=== PATIENT | female | born 1950 | race Caucasian/White ===

== ENCOUNTER 2023-07-30 04:57 | Inpatient (IN) | payer MEDICARE ==
[2023-07-30] MEDS ORDERED: Ondansetron PF 4 MG/2 ML Vial IVP PRN ×2 (05:45→05:50)
[2023-07-30] MEDS ORDERED: Ondansetron ODT 4 MG TAB SL PRN (05:45)
[2023-07-30] MEDS ORDERED: Electrolyte Replacement Protocol 1 EACH IVPB ONE (05:50)
[2023-07-30 06:14] VITALS: BMI 35.0
[2023-07-30] MEDS: Albumin 25% 25 GM (100 mL) BOT IVPB SCH ×2 (06:40→17:17)
[2023-07-30] MEDS: Sodium Bicarbonate 150 MEQ in Dextrose 5% in Water 1,000 ML FS SCH ×2 (07:04→07:50)
[2023-07-30] MEDS: Pantoprazole 80 MG, Admixture Fee 1 EACH in Sodium Chloride 0.9% 100 ML IVPB SCH (07:51)
[2023-07-30 07:58] LABS: ALT (SGPT) 18 U/L (8-55); AST (SGOT) 20 U/L (5-34); Albumin 2.3 g/dL (3.4-4.8); Alkaline Phosphatase 116 U/L (40-110); Anion Gap 22 mmol/L (10-20); BUN (Urea Nitrogen) 83 mg/dL (9.8-20.1); Bilirubin, Total 0.5 mg/dL (0.2-1.2); Calc. Creatinine Clearance 16 mL/min (70-130); Calcium 7.8 mg/dL (7.8-10.44); Carbon Dioxide 11 mmol/L (23-31); Chloride 112 mmol/L (98-107); Estimated GFR 8; Globulin 3.6 g/dL (2.4-3.5); Glucose 97 mg/dL (83-110); Potassium 3.5 mmol/L (3.5-5.1); Protein, Total 5.9 g/dL (5.8-8.1); Sodium 141 mmol/L (136-145)
[2023-07-30 07:59] LABS: Hematocrit 26.9 % (36.0-47.0); Hemoglobin 8.6 g/dL (12.0-16.0); Mean Corpuscular Hemoglobin 27.8 pg (27.0-31.0); Mean Corpuscular Volume 87.1 fL (78.0-98.0); Mean Platelet Volume 11.7 fL (7.4-10.4); Platelet Count 246 10x3/uL (130-400); RBC Distribution Width 16.1 % (11.5-14.5); Red Blood Cell (RBC) Count 3.09 mill/uL (4.20-5.40)
[2023-07-30] MEDS: Cefepime 2 GM in Sodium Chloride 0.9% 100 ML IVPB SCH (08:22)
[2023-07-30] MEDS: LevoFLOXacin 750 mg/D5W 750 MG in Premix 1 BAG IVPB SCH (08:23)
[2023-07-30 08:42] LABS: Band 22 % (5-11); Lymphocytes 5 % (21-51); Monocytes 2 % (0-10); Neutrophil 71 % (42-75)
[2023-07-30 08:46] LABS: Burr Cells SLIGHT = 2-5 cells (100X) (0-1/hpf); Platelet Adequacy Comment Platelets Normal; Polychromasia SLIGHT = 2-3 cells (100X) (0-2/hpf); Vacuoles SLIGHT
[2023-07-30 09:29] LABS: Toxic Granulation SLIGHT
[2023-07-30 09:36] LABS: Large Platelets 3.9 % (0-5); Metamyelocyte 2 % (0-0)
[2023-07-30] MEDS: Pantoprazole 40 MG VIAL IVP SCH ×2 (11:20→20:39)
[2023-07-30] MEDS: Meropenem 1 GM in Sodium Chloride 0.9% 100 ML IVPB SCH (11:20)
[2023-07-30] MEDS: NOREPINEPHRINE 8 MG/250 ML-D5W 250 ML IVPB PRN (14:48)
[2023-07-30] MEDS: Meropenem 500 MG in Sodium Chloride 0.9% 100 ML IVPB SCH (17:16)
[2023-07-30 19:12] LABS: Hematocrit 25.2 % (36.0-47.0); Hemoglobin 8.1 g/dL (12.0-16.0); Mean Corpuscular HGB CONC 32.1 g/dL (32.0-36.0); Mean Corpuscular Hemoglobin 27.7 pg (27.0-31.0); Mean Corpuscular Volume 86.3 fL (78.0-98.0); Mean Platelet Volume 11.3 fL (7.4-10.4); Platelet Count 221 10x3/uL (130-400); RBC Distribution Width 15.9 % (11.5-14.5); Red Blood Cell (RBC) Count 2.92 mill/uL (4.20-5.40)
[2023-07-30 20:05] LABS: Iron 9 ug/dL (50-170); Iron Binding Capacity, Total 139 mcg/dL (265-497)
[2023-07-30 20:52] LABS: Band 10 % (5-11); Eosinophils 1 % (0-10); Lymphocytes 3 % (21-51); Monocytes 5 % (0-10); Neutrophil 81 % (42-75); Plasma Cells 0 % (0-0); Total Cell Count 100
[2023-07-30] MEDS: Midodrine HCl 5 MG TAB PO SCH (21:21)
[2023-07-31] MEDS: Guaifenesin DM 100-10/5 ML UDCUP PO PRN (00:09)
[2023-07-31 02:33] LABS: Bilirubin Negative (Negative); Blood, Urine 3+ (Negative); Clarity Turbid (Clear); Glucose, Urine (Dipstick) Normal (Negative); Ketone, Urine Negative (Negative); Leukocyte 500 Leu/uL (Negative); Nitrite Negative (Negative); Protein, Urine (Dipstick) 100 mg/dL (Neg-Trace); RBC/HPF Greater than 50 HPF (0-3); Specific Gravity, Urine 1.015 (1.002-1.036); Squamous Epithelial 0-3 HPF (0-3); Transitional Epithelial 0-3 HPF (None Seen); Urobilinogen Normal mg/dL (Less than 2); WBC/HPF Greater than 50 HPF (0-3)
[2023-07-31 02:34] LABS: Bacteria/HPF Rare-Few HPF (None Seen)
[2023-07-31 04:39] LABS: Hematocrit 23.8 % (36.0-47.0); Hemoglobin 7.8 g/dL (12.0-16.0); Mean Corpuscular HGB CONC 32.8 g/dL (32.0-36.0); Mean Corpuscular Hemoglobin 27.7 pg (27.0-31.0); Mean Corpuscular Volume 84.4 fL (78.0-98.0); Platelet Count 227 10x3/uL (130-400); RBC Distribution Width 15.9 % (11.5-14.5); Red Blood Cell (RBC) Count 2.82 mill/uL (4.20-5.40)
[2023-07-31 05:00] LABS: ALT (SGPT) 20 U/L (8-55); AST (SGOT) 25 U/L (5-34); Albumin 2.4 g/dL (3.4-4.8); Alkaline Phosphatase 112 U/L (40-110); Anion Gap 20 mmol/L (10-20); BUN (Urea Nitrogen) 93 mg/dL (9.8-20.1); Bilirubin, Total 0.8 mg/dL (0.2-1.2); Calc. Creatinine Clearance 18 mL/min (70-130); Calcium 7.3 mg/dL (7.8-10.44); Carbon Dioxide 17 mmol/L (23-31); Chloride 108 mmol/L (98-107); Estimated GFR 9; Globulin 3.1 g/dL (2.4-3.5); Glucose 104 mg/dL (83-110); Magnesium 1.9 mg/dL (1.6-2.6); Protein, Total 5.5 g/dL (5.8-8.1); Sodium 142 mmol/L (136-145)
[2023-07-31 05:14] LABS: Anisocytosis SLIGHT = 6-15 cells HPF (0-5); Band 12 % (5-11); Burr Cells SLIGHT = 2-5 cells HPF (0-1); Lymphocytes 1 % (21-51); Monocytes 2 % (0-10); Neutrophil 85 % (42-75); Platelet Adequacy Comment Platelets Normal; Poikilocytosis SLIGHT = 6-15 cells HPF (0-5); Polychromasia SLIGHT = 2-3 cells HPF (0-2); Toxic Granulation SLIGHT
[2023-07-31] MEDS: Potassium Chloride 20 MEQ in Premix 1 BAG IVPB SCH (05:48)
[2023-07-31] MEDS: Potassium Chloride 20 MEQ TAB PO SCH (05:52)
[2023-07-31] MEDS ORDERED: Cefepime 1 GM in Sodium Chloride 0.9% 100 ML IVPB SCH ×2 (09:00→10:00)
[2023-07-31] MEDS: Sodium Bicarbonate 150 MEQ in Dextrose 5% in Water 1,000 ML IV SCH (09:13)
[2023-07-31] MEDS: Albumin 25% 25 GM (100 mL) BOT IVPB SCH (11:20)
[2023-07-31] MEDS: Ferrous Sulfate 325 MG TAB PO SCH (17:14)
[2023-07-31 18:05] LABS: ALT (SGPT) 21 U/L (8-55); AST (SGOT) 26 U/L (5-34); Albumin 2.8 g/dL (3.4-4.8); Alkaline Phosphatase 108 U/L (40-110); Anion Gap 20 mmol/L (10-20); BUN (Urea Nitrogen) 92 mg/dL (9.8-20.1); Bilirubin, Total 0.8 mg/dL (0.2-1.2); Calc. Creatinine Clearance 19 mL/min (70-130); Carbon Dioxide 20 mmol/L (23-31); Chloride 107 mmol/L (98-107); Estimated GFR 9; Globulin 2.8 g/dL (2.4-3.5); Glucose 98 mg/dL (83-110); Phosphorus 4.1 mg/dL (2.3-4.7); Potassium 3.4 mmol/L (3.5-5.1); Protein, Total 5.6 g/dL (5.8-8.1); Sodium 144 mmol/L (136-145)
[2023-07-31 18:48] LABS: Burr Cells SLIGHT = 2-5 cells HPF (0-1); Hypochromia SLIGHT = 6-15 cells HPF (0-5); Lymphocytes 6 % (21-51); Microcytosis SLIGHT = 6-15 cells HPF (0-5); Monocytes 3 % (0-10); Neutrophil 91 % (42-75); Ovalocytes MODERATE= 6-15 cells HPF (0-1); Platelet Adequacy Comment Platelets Normal; Polychromasia SLIGHT = 2-3 cells HPF (0-2); Target Cells SLIGHT = 2-5 cells HPF (0-1); Toxic Granulation MODERATE
[2023-07-31 18:50] LABS: Hematocrit 22.7 % (36.0-47.0); Hemoglobin 7.4 g/dL (12.0-16.0); Mean Corpuscular HGB CONC 32.6 g/dL (32.0-36.0); Mean Corpuscular Hemoglobin 27.4 pg (27.0-31.0); Mean Corpuscular Volume 84.1 fL (78.0-98.0); Mean Platelet Volume 11.3 fL (7.4-10.4); Platelet Count 207 10x3/uL (130-400); RBC Distribution Width 15.9 % (11.5-14.5)
[2023-07-31] MEDS: Acetaminophen 325 MG TAB PO PRN (20:07)
[2023-08-01] MEDS: Melatonin 3 MG TAB PO SCH (00:48)
[2023-08-01 05:30] LABS: Hemoglobin 7.3 g/dL (12.0-16.0); Mean Corpuscular HGB CONC 33.2 g/dL (32.0-36.0); Mean Corpuscular Volume 84.3 fL (78.0-98.0); Mean Platelet Volume 11.2 fL (7.4-10.4); Platelet Count 196 10x3/uL (130-400); Red Blood Cell (RBC) Count 2.61 mill/uL (4.20-5.40)
[2023-08-01 06:14] LABS: ALT (SGPT) 19 U/L (8-55); AST (SGOT) 28 U/L (5-34); Alkaline Phosphatase 97 U/L (40-110); Anion Gap 17 mmol/L (10-20); BUN (Urea Nitrogen) 97 mg/dL (9.8-20.1); Calc. Creatinine Clearance 21 mL/min (70-130); Calcium 7.2 mg/dL (7.8-10.44); Carbon Dioxide 24 mmol/L (23-31); Chloride 105 mmol/L (98-107); Estimated GFR 10; Globulin 2.5 g/dL (2.4-3.5); Glucose 113 mg/dL (83-110); Potassium 2.9 mmol/L (3.5-5.1); Protein, Total 5.5 g/dL (5.8-8.1); Sodium 143 mmol/L (136-145)
[2023-08-01 06:53] LABS: Band 1 % (5-11); Burr Cells SLIGHT = 2-5 cells HPF (0-1); Lymphocytes 2 % (21-51); Monocytes 3 % (0-10); Myelocyte 1 % (0-0); Neutrophil 93 % (42-75); Platelet Adequacy Comment Platelets Normal; Smudge Cells 9.9 %
[2023-08-01] MEDS: Potassium Chloride 20 MEQ in Premix 1 BAG IVPB SCH (06:58)
[2023-08-01] MEDS: Ferrous Sulfate 325 MG TAB PO SCH (09:26)
[2023-08-01] MEDS: Sodium Chloride 0.9% 1,000 ML IV SCH (10:00)
[2023-08-01] MEDS ORDERED: LevoFLOXacin 500 mg/D5W 500 MG in Premix 1 BAG IVPB SCH (10:00)
[2023-08-01] MEDS: Potassium Bicarbonate/Cit Ac 20 MEQ TAB PO SCH (10:53)
[2023-08-01 15:16] LABS: Potassium 3.7 mmol/L (3.5-5.1)
[2023-08-01] MEDS: Dronedarone HCl 400 MG TAB PO SCH (17:53)
[2023-08-01] MEDS: dilTIAZem CD 180 MG CAP PO SCH (17:53)
[2023-08-01] MEDS: Ipratropium/Albuterol 3 ML NEB NEB PRN (18:10)
[2023-08-01] MEDS: Morphine 2 MG/ML VIAL SLOW IVP PRN (18:29)
[2023-08-01 22:23] LABS: Hematocrit 23.8 % (36.0-47.0); Hemoglobin 7.9 g/dL (12.0-16.0)
[2023-08-01 22:37] LABS: Anion Gap 16 mmol/L (10-20); BUN (Urea Nitrogen) 87 mg/dL (9.8-20.1); Calc. Creatinine Clearance 26 mL/min (70-130); Calcium 7.2 mg/dL (7.8-10.44); Carbon Dioxide 24 mmol/L (23-31); Chloride 109 mmol/L (98-107); Estimated GFR 13; Glucose 113 mg/dL (83-110); Potassium 3.1 mmol/L (3.5-5.1); Sodium 146 mmol/L (136-145)
[2023-08-01] MEDS: Furosemide 40 MG (4 mL) VIAL SLOW IVP SCH (22:51)
[2023-08-02] MEDS: Potassium Chloride 20 MEQ TAB PO SCH ×2 (00:12→09:49)
[2023-08-02 06:49] LABS: #Basophils Less than 0.03 10x3/uL (0.0-0.2); %Basophils 0.2 % (0.0-1.0); %Eosinophils 0.6 % (0.0-10.0); %Lymphocytes 7.6 % (21.0-51.0); %Monocytes 8.4 % (0.0-10.0); Hematocrit 26.3 % (36.0-47.0); Hemoglobin 8.4 g/dL (12.0-16.0); Mean Corpuscular HGB CONC 31.9 g/dL (32.0-36.0); Mean Corpuscular Hemoglobin 27.3 pg (27.0-31.0); Mean Corpuscular Volume 85.4 fL (78.0-98.0); Mean Platelet Volume 10.8 fL (7.4-10.4); Platelet Count 205 10x3/uL (130-400); RBC Distribution Width 16.2 % (11.5-14.5); Red Blood Cell (RBC) Count 3.08 mill/uL (4.20-5.40)
[2023-08-02 07:59] LABS: ALT (SGPT) 23 U/L (8-55); AST (SGOT) 28 U/L (5-34); Albumin 3.1 g/dL (3.4-4.8); Alkaline Phosphatase 110 U/L (40-110); Anion Gap 19 mmol/L (10-20); BUN (Urea Nitrogen) 89 mg/dL (9.8-20.1); Calc. Creatinine Clearance 30 mL/min (70-130); Calcium 7.5 mg/dL (7.8-10.44); Carbon Dioxide 21 mmol/L (23-31); Chloride 111 mmol/L (98-107); Estimated GFR 15; Globulin 2.3 g/dL (2.4-3.5); Glucose 108 mg/dL (83-110); Magnesium 2.1 mg/dL (1.6-2.6); Potassium 3.3 mmol/L (3.5-5.1); Protein, Total 5.4 g/dL (5.8-8.1); Sodium 148 mmol/L (136-145)
[2023-08-02] MEDS: dilTIAZem CD 180 MG CAP PO SCH (09:50)
[2023-08-02] MEDS: Pantoprazole DR 40 MG TAB PO SCH (09:50)
[2023-08-02] MEDS: Lactated Ringer's 1,000 ML IV SCH ×2 (14:58→22:56)
[2023-08-03 04:37] LABS: #Basophils Less than 0.03 10x3/uL (0.0-0.2); %Basophils 0.2 % (0.0-1.0); %Eosinophils 0.6 % (0.0-10.0); %Lymphocytes 8.5 % (21.0-51.0); %Monocytes 9.4 % (0.0-10.0); Hemoglobin 8.1 g/dL (12.0-16.0); Mean Corpuscular HGB CONC 32.4 g/dL (32.0-36.0); Mean Corpuscular Hemoglobin 26.6 pg (27.0-31.0); Mean Corpuscular Volume 82.2 fL (78.0-98.0); Mean Platelet Volume 10.8 fL (7.4-10.4); Platelet Count 204 10x3/uL (130-400); RBC Distribution Width 15.9 % (11.5-14.5); Red Blood Cell (RBC) Count 3.04 mill/uL (4.20-5.40)
[2023-08-03 04:57] LABS: ALT (SGPT) 22 U/L (8-55); AST (SGOT) 25 U/L (5-34); Albumin 2.8 g/dL (3.4-4.8); Alkaline Phosphatase 114 U/L (40-110); Anion Gap 14 mmol/L (10-20); BUN (Urea Nitrogen) 70 mg/dL (9.8-20.1); Bilirubin, Total 0.8 mg/dL (0.2-1.2); Calc. Creatinine Clearance 50 mL/min (70-130); Calcium 8.5 mg/dL (7.8-10.44); Carbon Dioxide 27 mmol/L (23-31); Chloride 110 mmol/L (98-107); Estimated GFR 28; Glucose 108 mg/dL (83-110); Iron 20 ug/dL (50-170); Iron Binding Capacity, Total 131 mcg/dL (265-497); Potassium 3.3 mmol/L (3.5-5.1); Protein, Total 5.8 g/dL (5.8-8.1); Sodium 148 mmol/L (136-145)
[2023-08-03] MEDS: Dextrose 5 %-0.45 % NaCl 1,000 ML IV SCH (12:15)
[2023-08-03] MEDS: Potassium Chloride 20 MEQ TAB PO SCH (12:15)
[2023-08-04 04:57] LABS: #Basophils Less than 0.03 10x3/uL (0.0-0.2); %Basophils 0.3 % (0.0-1.0); %Eosinophils 0.9 % (0.0-10.0); %Lymphocytes 10.1 % (21.0-51.0); %Monocytes 9.6 % (0.0-10.0); Hematocrit 25.4 % (36.0-47.0); Hemoglobin 8.2 g/dL (12.0-16.0); Mean Corpuscular HGB CONC 32.3 g/dL (32.0-36.0); Mean Corpuscular Volume 83.6 fL (78.0-98.0); Mean Platelet Volume 11.3 fL (7.4-10.4); Platelet Count 191 10x3/uL (130-400); RBC Distribution Width 15.7 % (11.5-14.5); Red Blood Cell (RBC) Count 3.04 mill/uL (4.20-5.40)
[2023-08-04 05:15] LABS: ALT (SGPT) 22 U/L (8-55); AST (SGOT) 24 U/L (5-34); Albumin 2.7 g/dL (3.4-4.8); Alkaline Phosphatase 112 U/L (40-110); Anion Gap 13 mmol/L (10-20); BUN (Urea Nitrogen) 45 mg/dL (9.8-20.1); Bilirubin, Total 0.7 mg/dL (0.2-1.2); Calc. Creatinine Clearance 83 mL/min (70-130); Calcium 8.8 mg/dL (7.8-10.44); Carbon Dioxide 26 mmol/L (23-31); Chloride 112 mmol/L (98-107); Estimated GFR 54; Glucose 123 mg/dL (83-110); Potassium 3.5 mmol/L (3.5-5.1); Protein, Total 5.7 g/dL (5.8-8.1); Sodium 147 mmol/L (136-145)
[2023-08-04 07:13] LABS: Magnesium 1.8 mg/dL (1.6-2.6)
[2023-08-04] MEDS: Meropenem 1 GM in Sodium Chloride 0.9% 100 ML IVPB SCH (16:48)
[2023-08-05 04:57] LABS: #Basophils Less than 0.03 10x3/uL (0.0-0.2); %Basophils 0.2 % (0.0-1.0); %Eosinophils 1.9 % (0.0-10.0); %Lymphocytes 10.5 % (21.0-51.0); %Monocytes 8.3 % (0.0-10.0); Hematocrit 26.3 % (36.0-47.0); Hemoglobin 8.4 g/dL (12.0-16.0); Mean Corpuscular HGB CONC 31.9 g/dL (32.0-36.0); Mean Corpuscular Hemoglobin 27.8 pg (27.0-31.0); Mean Corpuscular Volume 87.1 fL (78.0-98.0); Mean Platelet Volume 11.3 fL (7.4-10.4); Platelet Count 188 10x3/uL (130-400); RBC Distribution Width 15.5 % (11.5-14.5); Red Blood Cell (RBC) Count 3.02 mill/uL (4.20-5.40)
[2023-08-05 05:23] LABS: ALT (SGPT) 23 U/L (8-55); AST (SGOT) 25 U/L (5-34); Albumin 2.8 g/dL (3.4-4.8); Alkaline Phosphatase 108 U/L (40-110); Anion Gap 15 mmol/L (10-20); BUN (Urea Nitrogen) 29 mg/dL (9.8-20.1); Bilirubin, Total 0.7 mg/dL (0.2-1.2); Calc. Creatinine Clearance 99 mL/min (70-130); Calcium 9.2 mg/dL (7.8-10.44); Carbon Dioxide 26 mmol/L (23-31); Chloride 112 mmol/L (98-107); Estimated GFR 67; Globulin 3.2 g/dL (2.4-3.5); Glucose 120 mg/dL (83-110); Potassium 3.8 mmol/L (3.5-5.1); Sodium 149 mmol/L (136-145)
[2023-08-05] MEDS: Dextrose 5% in Water 1,000 ML IV SCH (10:10)
[2023-08-05] MEDS: Losartan 25 MG TAB PO SCH (15:27)
[2023-08-05] MEDS: Metoprolol Tartrate 5 MG (5 mL) VIAL IVP SCH ×2 (21:24→23:07)
[2023-08-06 04:33] LABS: #Basophils Less than 0.03 10x3/uL (0.0-0.2); %Basophils 0.3 % (0.0-1.0); %Eosinophils 3.2 % (0.0-10.0); %Lymphocytes 14.8 % (21.0-51.0); %Monocytes 8.4 % (0.0-10.0); %Neutrophils 72.2 % (42.0-75.0); Hematocrit 26.5 % (36.0-47.0); Hemoglobin 8.4 g/dL (12.0-16.0); Mean Corpuscular HGB CONC 31.7 g/dL (32.0-36.0); Mean Corpuscular Hemoglobin 27.5 pg (27.0-31.0); Mean Corpuscular Volume 86.9 fL (78.0-98.0); Mean Platelet Volume 11.4 fL (7.4-10.4); Platelet Count 184 10x3/uL (130-400); RBC Distribution Width 15.3 % (11.5-14.5); Red Blood Cell (RBC) Count 3.05 mill/uL (4.20-5.40)
[2023-08-06 05:00] LABS: ALT (SGPT) 23 U/L (8-55); AST (SGOT) 23 U/L (5-34); Albumin 2.8 g/dL (3.4-4.8); Alkaline Phosphatase 104 U/L (40-110); Anion Gap 13 mmol/L (10-20); BUN (Urea Nitrogen) 23 mg/dL (9.8-20.1); Bilirubin, Total 0.9 mg/dL (0.2-1.2); Calc. Creatinine Clearance 100 mL/min (70-130); Calcium 9.5 mg/dL (7.8-10.44); Carbon Dioxide 32 mmol/L (23-31); Chloride 107 mmol/L (98-107); Estimated GFR 68; Globulin 3.3 g/dL (2.4-3.5); Glucose 121 mg/dL (83-110); Magnesium 1.6 mg/dL (1.6-2.6); Protein, Total 6.1 g/dL (5.8-8.1); Sodium 148 mmol/L (136-145)
[2023-08-06] MEDS ORDERED: Lidocaine 1% PF 5 ML VIAL ONE (07:22)
[2023-08-06] MEDS ORDERED: Sodium Bicarbonate 2.5 MEQ/5 ML SDV ONE (07:22)
[2023-08-06] MEDS: Losartan 25 MG TAB PO SCH (10:05)
[2023-08-06 12:24] VITALS: BMI 36.0
[2023-08-06] MEDS: Metoprolol Tartrate 25 MG TAB PO SCH (19:57)
[2023-08-07] MEDS ORDERED: Electrolyte Replacement Protocol 1 EACH FS SCH (03:30)
[2023-08-07 04:04] LABS: #Basophils Less than 0.03 10x3/uL (0.0-0.2); %Basophils 0.3 % (0.0-1.0); %Eosinophils 5.5 % (0.0-10.0); %Lymphocytes 17.3 % (21.0-51.0); %Monocytes 11.1 % (0.0-10.0); %Neutrophils 65.1 % (42.0-75.0); Hematocrit 27.2 % (36.0-47.0); Hemoglobin 8.5 g/dL (12.0-16.0); Mean Corpuscular HGB CONC 31.3 g/dL (32.0-36.0); Mean Corpuscular Volume 86.3 fL (78.0-98.0); Mean Platelet Volume 11.3 fL (7.4-10.4); Platelet Count 189 10x3/uL (130-400); RBC Distribution Width 15.1 % (11.5-14.5); Red Blood Cell (RBC) Count 3.15 mill/uL (4.20-5.40)
[2023-08-07 04:25] LABS: ALT (SGPT) 23 U/L (8-55); AST (SGOT) 21 U/L (5-34); Albumin 2.7 g/dL (3.4-4.8); Alkaline Phosphatase 94 U/L (40-110); Anion Gap 14 mmol/L (10-20); BUN (Urea Nitrogen) 21 mg/dL (9.8-20.1); Bilirubin, Total 0.5 mg/dL (0.2-1.2); Calc. Creatinine Clearance 102 mL/min (70-130); Calcium 9.3 mg/dL (7.8-10.44); Carbon Dioxide 29 mmol/L (23-31); Chloride 107 mmol/L (98-107); Estimated GFR 69; Globulin 3.3 g/dL (2.4-3.5); Glucose 114 mg/dL (83-110); Magnesium 1.6 mg/dL (1.6-2.6); Potassium 3.1 mmol/L (3.5-5.1); Sodium 147 mmol/L (136-145)
[2023-08-07] MEDS: Magnesium 2 GM/50 ML(in water) 2 GM in Premix 1 BAG IVPB SCH (08:13)
[2023-08-07] MEDS: Potassium Chloride 20 MEQ TAB PO SCH (08:15)
[2023-08-07] MEDS: Rivaroxaban 10 MG TAB PO SCH (16:03)
[2023-08-08 05:04] LABS: #Basophils 0.04 10x3/uL (0.0-0.2); %Basophils 0.7 % (0.0-1.0); %Eosinophils 5.5 % (0.0-10.0); %Lymphocytes 18.1 % (21.0-51.0); %Monocytes 9.9 % (0.0-10.0); %Neutrophils 65.1 % (42.0-75.0); Hematocrit 28.1 % (36.0-47.0); Hemoglobin 8.8 g/dL (12.0-16.0); Mean Corpuscular HGB CONC 31.3 g/dL (32.0-36.0); Mean Corpuscular Hemoglobin 26.6 pg (27.0-31.0); Mean Corpuscular Volume 84.9 fL (78.0-98.0); Mean Platelet Volume 12.3 fL (7.4-10.4); Platelet Count 213 10x3/uL (130-400); RBC Distribution Width 15.1 % (11.5-14.5); Red Blood Cell (RBC) Count 3.31 mill/uL (4.20-5.40)
[2023-08-08 08:53] LABS: ALT (SGPT) 22 U/L (8-55); AST (SGOT) 21 U/L (5-34); Alkaline Phosphatase 105 U/L (40-110); Anion Gap 14 mmol/L (10-20); BUN (Urea Nitrogen) 22 mg/dL (9.8-20.1); Bilirubin, Total 0.5 mg/dL (0.2-1.2); Calc. Creatinine Clearance 83 mL/min (70-130); Calcium 9.4 mg/dL (7.8-10.44); Carbon Dioxide 28 mmol/L (23-31); Chloride 107 mmol/L (98-107); Estimated GFR 55; Globulin 3.7 g/dL (2.4-3.5); Glucose 136 mg/dL (83-110); Potassium 3.4 mmol/L (3.5-5.1); Protein, Total 6.7 g/dL (5.8-8.1); Sodium 146 mmol/L (136-145)
[2023-08-08] MEDS: Potassium Chloride 20 MEQ TAB PO SCH (10:08)
[2023-08-08 15:50] VITALS: BP 146/63; TEMP 97.8
== END 2023-08-08 16:39 | disposition home or self-care (01) | DRG 871 ==
LOC: CCU 05:28 → 2NO 08-01 15:19
PROVIDERS: ADMIT Internal Medicine; ATTEND Hospitalist
PROC: 3E033XZ Introduction of Vasopressor into Peripheral Vein, Percutaneous Approach (ICD-10-PCS; 2023-07-30)
PROC: 30233J1 Transfusion of Nonautologous Serum Albumin into Peripheral Vein, Percutaneous Approach (ICD-10-PCS; 2023-07-30)
PROC: 3E03329 Introduction of Other Anti-infective into Peripheral Vein, Percutaneous Approach (ICD-10-PCS; 2023-07-30)
PROC: 02HV33Z Insertion of Infusion Device into Superior Vena Cava, Percutaneous Approach (ICD-10-PCS; principal; 2023-08-06)
PROC: B5181ZA Fluoroscopy of Superior Vena Cava using Low Osmolar Contrast, Guidance (ICD-10-PCS; 2023-08-06)
DX: A41.51 Sepsis due to Escherichia coli [E. coli] (principal); R65.21 Severe sepsis with septic shock; N39.0 Urinary tract infection, site not specified; N17.9 Acute kidney failure, unspecified; I42.9 Cardiomyopathy, unspecified; I50.22 Chronic systolic (congestive) heart failure; K92.2 Gastrointestinal hemorrhage, unspecified; C85.90 Non-Hodgkin lymphoma, unspecified, unspecified site; I13.0 Hypertensive heart and chronic kidney disease with heart failure and stage 1 through stage 4 chronic kidney disease, or unspecified chronic kidney disease; E87.20 Acidosis, unspecified; E87.0 Hyperosmolality and hypernatremia; I48.0 Paroxysmal atrial fibrillation; Z79.899 Other long term (current) drug therapy; Z90.89 Acquired absence of other organs; Z98.890 Other specified postprocedural states; N18.31 Chronic kidney disease, stage 3a; N20.0 Calculus of kidney; E87.6 Hypokalemia; D63.1 Anemia in chronic kidney disease
CPT/HCPCS: 36415; 36416; 36569; 51702; 70450; 71045; 74176; 76770; 76937; 77001; 80053; 81001; 82274; 82533; 82728; 82805; 83540; 83550; 83605; 83690; 83735; 83880; 84100; 84145; 84443; 84484; 85025; 85610; 85730; 86850; 86900; 86901; 87040; 87077; 87086; 87149; 87186; 87633; 88184; 88185; 88189; 93005; 93010; 93306; 96361; 96365; 96366; 96367; 96368; C1751; C9113; J0456; J0692; J0696; J1940; J1956; J2185; J2272; J3475; J3480; J3490; J7042; J7050; J7070; J7120; J7620; P9047